=== PATIENT | male | born 1960 | race Caucasian/White ===

== ENCOUNTER 2018-11-14 17:34 | Emergency (ER) | payer SELFPAY ==
[2018-11-14] MEDS ORDERED: Sulfameth/Trimethoprim DS 800-160mg TAB ONE (18:24)
[2018-11-14] MEDS ORDERED: Cephalexin 500 MG CAP ONE (18:24)
[2018-11-14] MEDS ORDERED: Triple Antibiotic Oint 1 GM Packet ONE (18:28)
== END 2018-11-14 18:35 | disposition home or self-care (01) ==
LOC: MADERS 17:34
DX: T81.49XA Infection following a procedure, other surgical site, initial encounter (principal); I10 Essential (primary) hypertension; Z48.01 Encounter for change or removal of surgical wound dressing; E66.9 Obesity, unspecified
CPT/HCPCS: 99283